=== PATIENT | male | born 1990 ===

== ENCOUNTER 2018-05-09 17:14 | Emergency (ER) | payer OTHER ==
[~2018-05-09] VITALS: Ht 180.3 cm; Wt 68.0 kg
[2018-05-09 17:15] VITALS: BP 129/88; Ht 180.3 cm; Wt 68.0 kg
== END 2018-05-09 17:15 | disposition other institution (70) ==
LOC: ED 17:14
DX: Z02.89 Encounter for other administrative examinations (principal)

== ENCOUNTER 2018-10-15 22:01 | Emergency (ER) | payer SELFPAY ==
[~2018-10-15] VITALS: Ht 180.3 cm; Wt 68.0 kg
[2018-10-15 22:03] VITALS: BP 123/81; Ht 180.3 cm; Wt 68.0 kg
== END 2018-10-15 22:37 | disposition other institution (70) ==
LOC: ED 22:01
DX: L03.116 Cellulitis of left lower limb (principal); L03.115 Cellulitis of right lower limb; L03.114 Cellulitis of left upper limb; L03.113 Cellulitis of right upper limb; L40.9 Psoriasis, unspecified

== ENCOUNTER 2018-10-15 22:01 | Emergency (ER) | payer OTHER | END 2018-10-15 22:37 | disposition other institution (70) | LOC: ED 22:01 | DX: Z02.89 Encounter for other administrative examinations (principal) ==